=== PATIENT | female | born 1955 | race Caucasian/White ===

== ENCOUNTER 2018-09-07 06:33 | Inpatient (IN) ==
--- NOTE | 2018-09-06 15:16 | Anesthesia Evaluation PreOp ---
Date of Encounter: 09/07/18 Time of Encounter: 07:48 - Past History Planned Operation: robo sacrocolpopexy Cardiac History: Denies any Significant Hx Pulmonary History: SOLEDAD Dx VP RESPIRATORY History: Denies Any Significant HX Other Medical History: Denies Any Significant HX Anesthesia History: No Prior Anesthetic Complications, Past Anesthesia (gastric bypass, tubal, steffen, vaginal hysterectomy) Alcohol Use: none Drug use: none Medications and Allergies Calcium Carbonate [Calcium] 500 mg PO DAILY #0 02/01/17 [History] Cyanocobalamin (Vitamin B-12) [Vitamin B12] 2,500 mcg PO DAILY #0 02/01/17 [History] Acetaminophen [Tylenol] 1,000 mg PO Q6HR PRN #0 10/25/17 [History] Cholecalciferol (D-3) [Vitamin D] 1,000 unit PO DAILY #0 10/25/17 [History] Aspirin Enteric Coated [Aspirin EC] 81 mg PO DAILY 09/07/18 [History] Atorvastatin [Lipitor] 40 mg PO HS 09/07/18 [History] Allergy/AdvReac Type Severity Reaction Status Date / Time ampicillin Allergy See Verified 06/06/17 14:08 Comments Penicillins [PCN] Allergy Hives Verified 10/25/17 06:44 - Meds/Allergy Pre-op Review Medications Reviewed: Yes Allergies Reviewed: Yes Beta Blockers on Current Med List: No Anesthesia Results - Labs Laboratory Tests 08/24/18 09:06 Hgb 12.8 Hct 40.6 Plt Count 304 - Imaging Additional studies: cath 2018: Indications: Abnormal Test - Stress Suspected CAD Impressions: The left ventricle is normal and has normal contractility EF 55%. There is mild three vessel coronary artery disease. Recommendations: Optimal medical therapy of patient's disease. Aggressive risk factor modification. echo 2018: Impressions: LVEF 60%. Mild left ventricular diastolic dysfunction. Normal right ventricular structure and function. Mild mitral regurgitation. No pulmonary hypertension. Anesthesia Exam Selected Entries 09/07/18 07:23 Temperature 97.9 F Pulse Rate 63 Respiratory Rate 18 Blood Pressure 139/70 O2 Sat by Pulse Oximetry 97 Weight: 93kg BMI 35 NPO (# of Hours): 8 - HEENT Pupil (Motor): EOMI Mallampati: III Teeth: Normal Oral Opening: Less than or equal to 3 - VP RESPIRATORY LOC: Oriented VP RESPIRATORY Motor: Normal RUE, Normal LUE, Normal RLE, Normal LLE, Normal Face VP RESPIRATORY Sensory: Normal: RUE, LUE, RLE, LLE, Face - Cardiac Rhythm: Regular Murmur: Systolic - Pulmonary Breath Sounds: bilateral Clear Respiratory Effort: Symmetrical Anesthesia Assess/Plan ASA Score: 3 Level of consciousness: Cooperative, Oriented Anesthetic Plan: General Monitoring Plan: Standard Monitors Recovery Plan: PACU (agrees to GA)
[2018-09-07] MEDS ORDERED: Clindamycin 900 MG/50 ML 900 MG/50 ML IV.SOLN IVPB ONE (06:44)
[2018-09-07] MEDS ORDERED: Ringers Solution, Lactated 1,000 ML IVC SCH ×2 (06:45→08:00)
[2018-09-07] MEDS ORDERED: MetroNIDAZOLE 500 MG/100 ML 500 MG/100 ML BAG IVPB ONE (06:45)
--- NOTE | 2018-09-07 06:56 | History & Physical Report ---
Date of Encounter: 09/07/18 Time of Encounter: 06:55 24 Hour HP Update - Instructions Instructions: If the History and Physical is less than 30 days old and was completed prior to A.M. admission and or procedure and has NOT been updated on calendar day of procedure please complete this update prior to performing procedure. - Update Patient reports changes in Medical Condition: No Changes in examination, assessment, or condition: No Changes in Medication: No Preop tests/diagnostics Reviewed: Yes Surgery Remains Indicated: Yes Consent for Planned Operative Procedure(s) Verified: Yes - Pre-Operative Checklist Preoperative Checklist Indicated: Yes Prophylactic Antibiotic Ordered: Yes Home Medications Include Beta Sharon: No Beta Sharon Taken Today (Day of Surgery): No Beta Sharon Taken Yesterday (Day Prior to Surgery): No Is VTE Prophylaxis Indicated?: Yes
[2018-09-07] MEDS ORDERED: Ondansetron 4 MG/2 ML VIAL ONE (07:39)
[2018-09-07] MEDS ORDERED: Dexamethasone 4 MG/ML VIAL ONE (07:39)
[2018-09-07] MEDS ORDERED: *HR* Rocuronium Bromide 50 MG/5 ML VIAL ONE ×2 (07:39→09:58)
[2018-09-07] MEDS ORDERED: Lidocaine -MPF 4% 5 ML AMPUL ONE (07:39)
[2018-09-07] MEDS ORDERED: Lidocaine -MPF 2% 2 ML VIAL ONE (07:39)
[2018-09-07] MEDS ORDERED: *HR* Propofol 200 MG/20 ML VIAL IVP ONE (07:40)
[2018-09-07] MEDS ORDERED: *HR* Midazolam HCl 2 MG/2 ML VIAL ONE (07:40)
[2018-09-07] MEDS ORDERED: *HR* FentaNYL (PF) 100 MCG/2 ML VIAL ONE (07:40)
[2018-09-07] MEDS ORDERED: *HR* HYDROMORPHONE 2 MG/ML VIAL ONE (07:41)
[2018-09-07] MEDS ORDERED: traMADol 50 MG TABLET PO ONE (07:57)
[2018-09-07] MEDS ORDERED: Gabapentin 300 MG CAPSULE PO ONE (07:57)
[2018-09-07] MEDS ORDERED: Celecoxib 200 MG CAPSULE PO ONE (07:57)
[2018-09-07] MEDS ORDERED: *HR* HYDROmorphone (PF) 1 MG/ML SYRINGE IVP PRN (07:59)
[2018-09-07] MEDS ORDERED: *HR* OxyCODONE Immed Rel 5 MG TABLET PO PRN (07:59)
[2018-09-07] MEDS ORDERED: Bupivacaine/EPI 1:200k 0.5%PF 30 ML VIAL ONE (08:13)
[2018-09-07] MEDS ORDERED: Bupivacaine/EPI 1:200k 0.25%PF 30 ML VIAL ONE (08:14)
[2018-09-07] MEDS ORDERED: Lidocaine/EPI 1:100k 1% 20 ML VIAL ONE (08:15)
[2018-09-07] MEDS ORDERED: EPHEDrine 50 MG/ML VIAL ONE (09:35)
--- NOTE | 2018-09-07 12:25 | OB/GYN Procedure Note ---
OB-PHOTOGRAPHER'S ASSISTANT: Procedure - Diagnosis Date of procedure: 09/07/18 Pre-op diagnosis: Pelvic prolapse with voiding dysfunction and stress urine incontinence Post-op diagnosis: same - Procedure Procedure: Attempted robotic surgery converted because of adhesions to open sacrocolpo Surgeon: Azael Cancino Was there an pediatric physical therapy assistant present: Yes Engineering Tech: Keri Brunner Anesthesia Type: General Estimated blood loss (cc): 150 Fluids: crystalloid Procedure Complications: None Specimens collected: Bilateral tubes and ovaries Disposition: PACU Findings: Dense adhesions between the bowel and anterior abdominal wall densities in both ovaries and pelvic sidewalls, small atrophic-appearing ovaries Narrative: Patient's 63-year-old female with symptomatic pelvic prolapse with prolapse anterior vaginal vagina with secondary voiding dysfunction and reconstruction incontinence. She was proven by cystometrogram to have complete bladder emptying as well as intrinsic sphincteric deficiency. She had states 3-4 cystocele. Discussed with patient options decision was made to proceed with surgical intervention with attempted robotic sacrocolpopexy , bilateral salpinge ctomy oophrectomy, tension-free vaginal taping. She did consent for possible laparotomy if required. Of note she did have previous stomach bypass with vertical incision above the umbilicus and prior vertical incision prior section. She did signed appropriate consent. Description procedure: Patient was taken operating room where general anesthesia was administered. She was prepped draped in usual sterile fashion. Bladder was drained of clear urine. I injected 60 mL of dilute local behind the symphysis pubis just above the symphysis pubis on the left and right side of the midline. Then identified the mid urethral portion anterior vaginal wall small incision below the mid urethral portion anterior vaginal wall. I injected 60 mL of dilute local in the right side up behind the symphysis pubis under the anterior vaginal wall now on the left side in the same location. Using catheter. Displaced the patient's bladder to the left side TVT needle was introduced through the suburethral incision brought up to the right lower quadrant incision hugging very near the symphysis pubis along the way. Then with the patient's bladder to her right side with one gloved hand in the vagina pushed the bladder towards the right side also was the TVT needle through the suburethral incision brought up to the left lower abdominal incision. Cystoscopy was then performed and showed no evidence of bladder trauma and there was strong ureteral jets bilaterally. This point turned to the abdominal portion procedure and I did not attention up the TVT mesh. Because of her midline incision I did place a 5 mm incision left upper quadrant and placed a 5 mm trocar through this site. It was noted to be very near but not through bowel adherent to the abdominal wall was position. Just to ensure that there is no appropriate activated trochars in place and placed an 8 mm incision approximately 10 cm lateral to this. Laparoscopy was again performed that the trocar had not noticed the bowel by approximate 3 cm. There is no evidence of serosal damage. I did under direct visualization place an 8 mm trocar on the right mid abdomen. Attempted to visualize and used scissors to gain access to take down the adhesions however I felt that the serosa was too adherent to abdominal wall these too many adhesions to safely free this up in the right also dense adhesions and bilateral adnexa making any attempt to free up the ovaries quite difficult. Because of this I did decide to convert the procedure to laparotomy. I did speak on the phone with patient's daughter and advised her of the situation. Scalp was used to make a Pfannenstiel skin incision which sharp taken down the rectus fascia fascia incised midline fascial incision was extended bilaterally. Plan is developed and rectus muscle rectus fascia superior and distally rectus muscle divided and peritoneum was entered bluntly. The omental adhesions down to the pelvis I did free up these adhesions. Also adhesions between the omentum to left lower quadrant these were freed up and was able to identify the left ovary. Left ovary was grasped with Leesa and pulled upwards. Curved Francisco Javier clamps taken crusting from the pelvic ligament and the mesosalpinx these were transected and ligated with 0 Vicryl suture. The right ovary was identified Feiden and pulled upwards freeing up the from the adhesions to the pelvic sidewall. Again this was double clamped these were transected and the vascular pedicles were ligated with 0 Vicryl suture. This point I did place a colpo assist manipulator in the vagina identified the vaginal cuff. I dissected down over the sacral promontory through the peritoneum along the medial longitudinal ligament once freeing this up placed over [place]-Jose Eduardo suture 2 through this lig ament. This point I did not have pediatric physical therapy assistant port gentle traction upward on the colpo assist device was able to identify the apex of the vagina was able to carefully dissect down along fascial plane anteriorly and posteriorly. Freed up approximately 5 cm tissue anteriorly and posteriorly along the vaginal cuff. The vaginal mesh was placed over the apex of the vagina and thoroughly secured down with approximately 10-15 interrupted 0 [place]-Jose Eduardo sutures anteriorly and posteriorly. This point I did start oversew the peritoneum over the mesh I then did attach the mesh to the 2 previously placed [place]-Jose Eduardo sutures on the sacral promontory. 4 completely strenuous down to perform vaginal exam and found the anterior vaginal wall to be excellently supported. Once the mesh was sewn down I completed the retroperitonealization of the mesh. This point thorough irrigation was performed and the fascia was closed with oh loop PDS skin edges reapproximated with russ. This point I gently pulled the TVT mesh along the anterior vaginal wall behind a catheter using 9 Hegar dilator to fit the mesh loosely along the anterior vaginal wall. The sheath was removed and the mesh was affixed this suture and anterior vaginal was closed with 4-0 Vicryl suture. This point excellent hemostasis was ensured. Cystoscopy was again performed after removing the catheter. There was strong ureteral jets bilaterally and no evidence of bladder trauma. This point all sponge and instruments counts are correct patient was awakened taken recovery in good condition.
[2018-09-07] MEDS ORDERED: Naloxone 0.4 MG/ML INJ IVP ONE (13:32)
[2018-09-07] MEDS ORDERED: Naloxone 0.4 MG/ML INJ ONE (13:33)
--- NOTE | 2018-09-07 14:24 | Anesthesia Evaluation Post Op ---
Date of Encounter: 09/07/18 Time of Encounter: 14:21 - Vital Signs Vital Signs: Selected Entries 09/07/18 13:44 09/07/18 14:00 Temperature 97.4 F L Pulse Rate 75 Respiratory Rate 12 Blood Pressure 126/74 O2 Sat by Pulse Oximetry 96 - Lungs Lungs: Clear Ascult./Percussion - Airway Airway: Non-obstructed - Cardiovascular Regular Rate - Mental Status Mental Status: Alert & Oriented, Answers Appropriately - Pain Pain Scale: 0 Pain Scale used: Numeric (1 - 10) - Nausea Vomiting Nausea Vomiting: Not Present - Hydration Hydration: Ice chips, Bravo catheter Notes: 09/07/18 14:22 patient had trouble with sleep apnea following the surgery. Had only 1 mg Dilaudid during the case. Tried bipap without success. Required narcan and patient responded well. Kept her for approx 45 min after narcan without relapse - Discharge PostOp Status: Transfer Patient to floor
[2018-09-07] MEDS ORDERED: Ondansetron 4 MG/2 ML VIAL IVP PRN (15:11)
[2018-09-07] MEDS ORDERED: Naloxone 0.4 MG/ML INJ IVP PRN (15:11)
[2018-09-07] MEDS: *HR* HYDROcodone/Acet 5/325 mg TABLET PO PRN (21:33)
[2018-09-08] MEDS: *HR* HYDROcodone/Acet 5/325 mg TABLET PO PRN ×5 (01:46→19:58)
--- NOTE | 2018-09-08 07:36 | OB/GYN Progress Note ---
Date of Encounter: 09/08/18 Time of Encounter: 07:34 - Assessment and Plan (1) Status post sacrocolpopexy Current Visit: Yes Status: Acute Pt s/p attempted robotic sacrocolpopexy converted to open sacrocolpopexy. Doing well overall. Will work on pain control and encourage ambulation. (2) S/P BSO (bilateral salpingo-oophorectomy) Current Visit: Yes Status: Acute Will attempt voiding trials. Subjective - Subjective Principal diagnosis: s/p laparotomy with sacrocolpopexy, TVT and BSO Interval history: Doing well, still with incisional pain. Attempting Reg diet without n/v, no flatus yet. Has been up to side of bed. Objective - Vital Signs Latest vital signs: Vital Signs Temp Pulse Resp BP Pulse Ox 09/08/18 05:43 98.0 F 73 16 112/64 98 09/08/18 00:28 97.4 F L 85 16 102/65 95 09/07/18 19:55 98.2 F 82 16 119/72 97 09/07/18 18:03 97.8 F 61 14 123/70 95 09/07/18 17:50 97.8 F 61 12 123/70 95 09/07/18 16:52 97.8 F 58 14 116/70 95 09/07/18 16:45 97.8 F 79 16 115/75 94 09/07/18 15:45 97.8 F 79 16 115/75 94 09/07/18 15:25 97.3 F L 69 12 121/74 95 09/07/18 15:15 97.6 F 63 14 108/66 95 09/07/18 14:45 12 09/07/18 14:15 60 16 122/70 95 09/07/18 14:00 75 12 126/74 96 09/07/18 13:44 97.4 F L 75 12 135/76 97 09/07/18 13:30 75 10 118/72 94 09/07/18 13:20 97.4 F L 75 12 119/72 97 09/07/18 13:10 84 12 119/79 96 09/07/18 13:00 80 14 132/76 93 09/07/18 12:50 97.3 F L 82 12 129/75 93 09/07/18 12:40 77 14 115/66 95 09/07/18 12:30 72 10 115/60 92 09/07/18 12:20 97.7 F 73 10 113/63 90 Intake and Output 09/07/18 09/07/18 09/08/18 15:59 23:59 07:59 Intake Total 0 / 0 0 / 0 Output Total 350 / 1050 700 / 1050 450 / 450 Balance -350 / -1050 -700 / -1050 -450 / -450 Intake: Oral 0 / 0 0 / 0 Output: Estimated Blood Loss 150 / 150 Catheter 200 / 900 700 / 900 450 / 450 Other: Weight 94.7 kg 93.213 kg Patient Weight 09/08/18 23:59 Weight 93.213 kg - I&O's I&O's: Intake & Output 09/05/18 09/06/18 09/07/18 09/08/18 23:59 23:59 23:59 23:59 Intake Total 0 / 0 0 / 0 Output Total 1050 / 1050 450 / 450 Balance -1050 / -1050 -450 / -450 Weight 94.7 kg 93.213 kg - Exam Lungs: bilateral: normal Chest: Normal S1, Normal S2 Extremities: Present: normal Abdomen: Present: normal appearance Incision OB: Present: normal, dry Consult Discharge Plan - Plan Referrals: Tylor Bruno DO [Primary Care Provider] -
[2018-09-08] MEDS ORDERED: Ketorolac 15 MG/ML VIAL IVP PRN (07:38)
[2018-09-08 07:41] LABS: Basophils % 0.1 %; Hematocrit 32.6 % (35.3-44.9); Hemoglobin 10.4 g/dL (11.5-15.4); Immature Granulocytes % 0.3 % (0-4); Lymphocytes % 27.1 %; Mean Corpuscular HGB Conc 31.9 g/dL (31.6-35.5); Mean Corpuscular Hemoglobin 30.2 pg (28.0-33.3); Mean Corpuscular Volume 94.8 fL (83.0-100.0); Mean Platelet Volume 11.3 fL (9.4-12.4); Monocytes # 0.6 K/mcL (0.0-1.3); Monocytes % 7.9 %; Neutrophils # 4.7 K/mcL (1.6-8.9); Platelet Count 207 K/mcL (140-400); Red Blood Count 3.44 M/mcL (3.82-4.97); Red Cell Distribution Width 13.1 % (11.5-14.5); Segmented Neutrophils % 64.6 %; White Blood Count 7.3 K/mcL (4.3-11.1)
[2018-09-08] MEDS: Aspirin Enteric Coated 81 MG Tablet PO SCH (08:37)
[2018-09-09] MEDS: *HR* HYDROcodone/Acet 5/325 mg TABLET PO PRN ×4 (00:08→12:05)
[2018-09-09] MEDS: Aspirin Enteric Coated 81 MG Tablet PO SCH (08:23)
[2018-09-09 08:40] VITALS: BP 138/73
--- NOTE | 2018-09-09 09:49 | Discharge Summary ---
Date of Encounter: 09/09/18 Time of Encounter: 09:49 - Discharge Diagnosis (1) Status post sacrocolpopexy Priority: Primary Status: Acute Comments: Doing well, will d/c home. (2) S/P BSO (bilateral salpingo-oophorectomy) Priority: Primary Status: Acute - Discharge Medications Prescriptions: New Docusate [Colace] 100 mg PO BID #60 capsule HYDROcodone/Acet 5/325 mg [[place] 5-325 mg] 1 tab PO Q4HR PRN 7 Days #35 tablet PRN Reason: Moderate Pain (4-6) Ondansetron HCl [Zofran] 4 mg PO Q8HR PRN #20 tab PRN Reason: nausea No Action Cyanocobalamin (Vitamin B-12) [Vitamin B12] 2,500 mcg PO DAILY #0 Calcium Carbonate [Calcium] 500 mg PO DAILY #0 Acetaminophen [Tylenol] 1,000 mg PO Q6HR PRN #0 PRN Reason: Pain Cholecalciferol (D-3) [Vitamin D] 1,000 unit PO DAILY #0 Atorvastatin [Lipitor] 40 mg PO HS Aspirin Enteric Coated [Aspirin EC] 81 mg PO DAILY Home Medications: Calcium Carbonate [Calcium] 500 mg PO DAILY #0 02/01/17 [History] Cyanocobalamin (Vitamin B-12) [Vitamin B12] 2,500 mcg PO DAILY #0 02/01/17 [History] Acetaminophen [Tylenol] 1,000 mg PO Q6HR PRN #0 10/25/17 [History] Cholecalciferol (D-3) [Vitamin D] 1,000 unit PO DAILY #0 10/25/17 [History] Aspirin Enteric Coated [Aspirin EC] 81 mg PO DAILY 09/07/18 [History] Atorvastatin [Lipitor] 40 mg PO HS 09/07/18 [History] Docusate [Colace] 100 mg PO BID #60 capsule 09/09/18 [Rx] HYDROcodone/Acet 5/325 mg [[place] 5-325 mg] 1 tab PO Q4HR PRN 7 Days #35 tablet 09/09/18 [Rx] Ondansetron HCl [Zofran] 4 mg PO Q8HR PRN #20 tab 09/09/18 [Rx] Allergies/Adverse Reactions: Allergy/AdvReac Type Severity Reaction Status Date / Time ampicillin Allergy See Verified 06/06/17 14:08 Comments Penicillins [PCN] Allergy Hives Verified 10/25/17 06:44 Data Procedures and tests throughout hospitalization: Laboratory Tests 09/08/18 07:12 WBC 7.3 RBC 3.44 L Hgb 10.4 L Hct 32.6 L MCV 94.8 MCH 30.2 MCHC 31.9 RDW 13.1 Plt Count 207 MPV 11.3 Immature Gran % 0.3 Seg Neutrophils % 64.6 Lymphocytes % 27.1 Monocytes % 7.9 Eosinophils % 0.0 Basophils % 0.1 Neutrophils # 4.7 Lymphocytes # 2.0 Monocytes # 0.6 Eosinophils # 0.0 Basophils # 0.0 - Impressions Doing well, still struggling with pain control but is coping ok. In past Percocet has caused chest discomfort so desires to stay on [place]. Regular diet without n/v. + Flatus, no BM. Voiding without difficulty and no ESTEPHANIA. Primary care physician: Tylor Bruno - Patient Status Disposition: Home, Self-Care Condition: Good Functional capacity at discharge: independent ambulation Overall status at discharge: patient is progressing back to baseline - Discharge Instructions Follow Up With: Azael Cancino MD [Partnered Physician] - - Diet and Activity Activity: increase activity as tolerated Diet: advance to your usual diet Hospital Course RESTORATIVE COORDINATOR Time Attestation: Total time spent providing and/or coordinating discharge services: Exam - Constitutional Vitals: Temp Pulse Resp BP Pulse Ox 97.6 F 73 16 138/73 96 09/09/18 08:37 09/09/18 08:37 09/09/18 08:37 09/09/18 08:37 09/09/18 08:37 General appearance IM: A&O X 3 - Respiratory Respiratory exam: Present: CTAB - Cardiovascular Cardiovascular exam IM: Present: RRR - GI/Abdominal GI/Abdominal exam IM: normal bowel sounds - Extremities Exam Extremities exam IM: Present: full ROM - Neurological Exam Neurological exam: oriented X3 - VTE Documentation of Mechanical Device: Intermittent pneumatic compression device
== END 2018-09-09 12:10 | disposition home or self-care (01) | DRG 743 ==
LOC: SAMDAY 06:33 → 1NENUOBS 14:35
PROVIDERS: ADMIT Obstetrics & Gynecology; ATTEND Obstetrics & Gynecology